=== PATIENT | male | born 1995 | race African-American/Black ===

== ENCOUNTER 2024-01-16 11:45 | Emergency (ER) | payer OTHER ==
[2024-01-16] MEDS ORDERED: traMADol HCl 50 MG TAB ONE (12:19)
[2024-01-16] MEDS ORDERED: Ketorolac Tromethamine 60 MG/2 ML VIAL ONE (12:19)
== END 2024-01-16 12:52 ==
LOC: NAV ERS 11:45
DX: S46.912A Strain of unspecified muscle, fascia and tendon at shoulder and upper arm level, left arm, initial encounter (principal); R03.0 Elevated blood-pressure reading, without diagnosis of hypertension; Z87.891 Personal history of nicotine dependence; X50.1XXA Overexertion from prolonged static or awkward postures, initial encounter; Y92.149 Unspecified place in prison as the place of occurrence of the external cause
CPT/HCPCS: 96372; J1885